=== PATIENT | male | born 1940 | race Caucasian/White ===

== ENCOUNTER 2016-10-20 19:08 | Inpatient (IN) | payer MEDICARE, OTHER ==
--- NOTE | ~2016-10-20 | DS ---
Discharge Summary [facility] [address] [place]. [address] NAME: MANJIT RIVERA : 44 STATUS : DIS IN PAT#: [id number] AGE: 76 ADM/REG DATE : 10/20/16 MR#: [id number] REPORT SERV DATE: 10/30/16 DICTATED BY: KATERIN GRIDER DATE: 10/30/16 REPORT STATUS : Draft TRANSCRIBED BY: MODRajeev DATE: 10/30/16 Data Collection from hospitalization DISCHARGE DIAGNOSIS(ES): 1. End-stage renal disease. 2. Volume overload. 3. Shortness of breath. 4. Benign prostatic hypertrophy. 5. Diabetes mellitus type 2. CONSULTATIONS: None. PROCEDURES PERFORMED: Echocardiogram 10/23/2016. MEDICATIONS: 1. Norvasc 10 mg every morning. 2. Coreg 25 mg twice daily. 3. Lasix 20 mg after supper. 4. Neurontin 100 mg at bedtime. 5. Keppra 500 mg twice daily. 6. Cozaar 100 mg every morning. 7. Dilantin 200 mg twice daily. 8. MiraLAX powder 9 g every morning. 9. Zoloft 100 mg at bedtime. 10.Restoril 15 mg at bedtime. 11.Ventolin two puffs every 4 hours as needed. 12.[place] 5/325 one four times daily as needed. 13.Valisone apply daily as needed. 14.Flonase two sprays each nostril daily as needed. 15.Aleve 440 mg twice daily as needed. 16.Nitrostat 0.4 mg as needed. 17.[id number] antihistamine; Benadryl, Zyrtec, etc., as needed for head congestion. CONDITION AT DISCHARGE: Upon discharge, he did appear to be doing well and had no complaints. DISPOSITION: He had been discharged home to continue a 2 g sodium, 1200 mL per day fluid restriction. Renal diet with activity as tolerated. He was to follow up with dialysis as directed. HOSPITAL COURSE: This 76-year-old male dialyzes chronically at [facility] on Wednesday, Wednesday, and Wednesday by the left upper extremity AV fistula. He was apparently at [facility] for evaluation, and chest x-ray was obtained. He was notified that he needed to go to the emergency room due to bilateral pneumonia. He related that he had been short of breath but also acknowledged lower extremity edema and orthopnea. He had significant cramping on dialysis and indicated that on occasion he had to sign it off due to severe pain. He denied any fever or chills and stated that his sputum production had been clear in color. He was on Zithromax prior to admission. He was admitted for further evaluation and Discharge Summary [address] [address] NAME: MANJIT RIVERA : 44 STATUS : DIS IN PAT#: [id number] AGE: 76 ADM/REG DATE : 10/20/16 MR#: [id number] REPORT SERV DATE: 10/30/16 DICTATED BY: KATERIN GRIDER DATE: 10/30/16 REPORT STATUS : Draft TRANSCRIBED BY: SHABNAM DATE: 10/30/16 treatment. Upon admission to the hospital, he had been placed on vancomycin initiation. He had been placed on vancomycin 1 g IV as directed as well as Levaquin 500 mg IV. He was continued on dialysis during hospitalization. Following the day of admission, he was afebrile and his vital signs were stable. He was continued on his current medications. His shortness breath was noted to have been improved. On 10/22/2016, he did continue to do well and had no new complaints noted. He was continued on supportive care. On 10/23/2016, he did continue to improve and his shortness breath was noted to have been improved. Vancomycin was discontinued. He did undergo the above echocardiogram. He had remained in stable condition and was then discharged on 10/24/2016 with the above instructions. Information collected by: Bobby MgIWiliamT. I submit the above information as my discharge summary. MAGALIE/SHABNAM Katerin Grider M.D. / [id number] CC: Sigrid Bennett M.D.
--- NOTE | ~2016-10-20 | HP ---
History And Physical [place] [id number] [facility] [place]. [address] NAME: MANJIT LESTER : 44 STATUS : ADM IN [facility]#: [id number] AGE: 76 ADM/REG DATE : 10/20/16 MR#: [id number] REPORT SERV DATE: 10/21/16 DICTATED BY: KRISTI HUSSEIN DATE: 10/20/16 REPORT STATUS : Draft TRANSCRIBED BY: MODL DATE: 10/20/16 DATE OF ADMISSION: 10/20/2016 NEPHROLOGY HISTORY AND PHYSICAL INDICATION FOR HOSPITALIZATION: Shortness of breath, cough, possible pneumonia. HISTORY OF PRESENT ILLNESS: Mr. Lester is a 76-year-old male who dialyzes chronically at [facility] on Wednesday, Wednesday, Wednesday by left upper extremity AV fistula. He was apparently at [facility] for evaluation and chest x-ray was obtained. The patient was notified that he needed to go to the emergency room due to bilateral pneumonia. He relates he has been short of breath but also acknowledges lower extremity edema and orthopnea. He has significant cramping on dialysis and indicates that on occasion he has to sign it off due to severe pain. He denied any fever or chills and states that his sputum production has been clear in color. He was on Zithromax prior to admission. PAST MEDICAL HISTORY: End-stage renal disease, dialyzing Wednesday, Wednesday, Wednesday by left AVF; BPH; hypertension; type 2 diabetes mellitus; history of seizure disorder; history of lumbar spine surgery; history of T-spine infection requiring surgery; history of [employer] bleed; diabetic neuropathy; anemia; remote laparoscopic cholecystectomy; coronary artery disease with CABG; and limited mobility since his thoracic spine infection. FAMILY HISTORY: Distant cousin on dialysis, one another cousin on dialysis received transplant, multiple family members with hypertension, denies family members with diabetes. SOCIAL HISTORY: with supportive . He is retired. No use of alcohol, tobacco products, or illicit drugs but quit smoking approximately 40 years ago. REVIEW OF SYSTEMS: HEENT: No change in visual acuity. No epistaxis. No otic infection. No pharyngitis. He does have problems with hearing and feels as fluid behind his eardrums. He has had recent increase in allergies. PULMONARY: Notes cough productive of clear sputum. No hemoptysis. No purulent sputum. No pleuritic chest pain. CARDIAC: Notes exertional dyspnea, orthopnea, lower extremity edema. Denies chest pain. GI: No nausea, vomiting, melena, notes occasional constipation. : No gross hematuria. MUSCULOSKELETAL: Pain in back and lower extremities. INTEGUMENT: No rash, no itching. NEUROLOGIC: No recent seizure activity. He notes limited mobility. The remainder of 12-point review of systems is negative. PHYSICAL EXAMINATION: VITAL SIGNS: Blood pressure 142/80, temp 98.4, and respiratory rate 14. GENERAL: Obese elderly male, chronically ill, somewhat hard of hearing. History And Physical [address] [place]. [address] NAME: MANJIT LESTER : 44 STATUS : ADM IN [facility]#: [id number] AGE: 76 ADM/REG DATE : 10/20/16 MR#: [id number] REPORT SERV DATE: 10/21/16 DICTATED BY: KRISTI HUSSEIN DATE: 10/20/16 REPORT STATUS : Draft TRANSCRIBED BY: SHABNAM DATE: 10/20/16 HEENT: Eyes, no scleral icterus. Pupils equal, reactive to light. Extraocular movement intact. Nares patent with some discharge. THROAT: Mild injection. Mucous membranes moist. NECK: No thyromegaly, masses, or bruits. CHEST/LUNGS: Late crackles at bases. Some expiratory wheezes. No dullness to percussion. CARDIAC: Regular rate and rhythm, 1/6 systolic ejection murmur. No gallop. No rub. ABDOMEN: Obese. Normoactive bowel sounds. No hepatosplenomegaly. No masses. /RECTAL: Not performed. EXTREMITIES: 2 to 3+ lower extremity edema. No calf tenderness. Left upper extremity AV fistula with good bruit and thrill. DERMIS: No rash. No skin lesions. MUSCULOSKELETAL: No deformity. No joint tenderness. NEUROLOGIC: Cranial nerves appear intact. No lateralizing weakness. IMPRESSION: 1. Pneumonia versus congestive heart failure. 2. End-stage renal disease, dialyzing Wednesday, Wednesday, Wednesday by left AV fistula at [facility]. 3. Hypertension. 4. Type 2 diabetes mellitus. 5. Diabetic neuropathy. 6. Anemia. 7. Coronary artery disease, status post CABG. 8. History of T-spine infection requiring surgery. 9. Remote laparoscopic cholecystectomy. PLAN: 1. Cultures and antibiotics. 2. Chest x-ray. 3. Sputum for C and S. 4. Hemodialysis with assessment for more aggressive ultrafiltration as tolerated on 10/21/2016. CG/MODL Kristi Hussein M.D. / [id number] CC: Sigrid Bennett M.D.
[~2016-10-20 19:08] MED LIST: ACIDOPHILU1 PO; ALLEGRA-D12 HOUR PO; ALTACE10 MG PO; ASA5GR PO; ASAB PO; C1 PO; CALTRA600D PO; CALTRAT600 PO; COREG12 PO; COREG25 PO; COREG3 PO; COUMADIN3 MG PO; FISH OIL OTC PO; FISH-EPA1000 MG PO; FLOMAX4 PO; FLONASE NAS; HALF81 PO; IRON PO; L40 PO; LIPITOR40 PO; LORTAB 5 PO; METAMUCIL CAN7 OZ PO; MUCINEX D PO; NITROSTAT0.4 MG SL; NORCO1 TA1 PO; NORV5 PO; OCEAN NAS; OMEGA-3 PO; PERCOCET1 TA4 PO; PHOSLO PO; PRIN20 PO; SENSIPAR30 M1 PO; TUMSROLL PO; VIT B-SIX 50 MG50 MG PO; VITC500 PO; ZEMPLAR1 PO; ZOCOR20 PO; ZOL100 PO; ZOL50 PO; ZOLOFT25 MG PO; ZYRTEC ALLGY10 MG PO; [UNRECOGNIZED DRUG - OTHER] EX
[2016-10-20 20:32] LABS: BASOPHILS 0.4 %; BASOPHILS ABSOLUTE 0.04 10/3/uL (0.0-0.16); EOSINOPHILS 3.6 %; EOSINOPHILS ABSOLUTE 0.37 10/3/uL (0.0-0.53); HEMATOCRIT 29.1 % (40.0-51.0); HEMOGLOBIN 9.9 g/dL (13.6-17.8); IMMATURE GRANULOCYTES 0.6 %; IMMATURE GRANULOCYTES ABSOLUTE 0.06 10/3/uL (0.0-0.11); LYMPHOCYTES 11.6 %; MANUAL DIFF NO %; MEAN CORPUSCULAR HEMOGLOB 32.2 pg (26.0-34.0); MEAN CORPUSCULAR VOLUME 94.8 fL (80-100); MEAN PLATELET VOLUME 9.3 fL (9.2-13.0); MONOCYTES 11.4 %; MONOCYTES ABSOLUTE 1.18 10/3/uL (0.21-1.20); NEUTROPHILS 72.4 %; NEUTROPHILS ABSOLUTE 7.52 10/3/uL (2.02-8.40); PLATELET COUNT 257 10/3/uL (150-400); RBC DISTRIBUTION WIDTH 17.1 % (12.0-16.0); RED CELL COUNT 3.07 10/6/uL (4.7-6.1); WHITE BLOOD CELLS 10.4 10/3/uL (4.5-10.5)
[2016-10-20 20:48] LABS: A/G RATIO 0.6 (0.7-1.9); ALBUMIN 2.4 G/DL (3.5-5.0); ALKALINE PHOSPHATASE 131 U/L (45-117); BUN (BLOOD UREA NITROGEN) 69 MG/DL (6-23); CALCIUM, SERUM 7.8 MG/DL (8.5-10.4); CHLORIDE, SERUM 101 MMOL/L (96-112); CO2 (CARBON DIOXIDE) 23 MMOL/L (24-34); CREATININE 8.65 MG/DL (0.70-1.30); GFR AFRICAN AMERICAN 6 ML/MIN (>=60); GFR NON AFRICAN AMERICAN 5 ML/MIN (>=60); GLOBULIN 4.1 G/DL (2.5-4.1); GLUCOSE, SERUM 113 MG/DL (60-99); PHOSPHORUS, SERUM 7.7 MG/DL (2.5-4.5); POTASSIUM, SERUM 4.2 MMOL/L (3.5-5.3); SGOT(AST) 12 U/L (5-40); SGPT(ALT) 9 U/L (5-65); SODIUM, SERUM 138 MMOL/L (135-148); TOTAL PROTEIN 6.5 G/DL (6.0-8.5)
[2016-10-20] MEDS ORDERED: NEO/POLY/HC OTIC OT (21:40)
[2016-10-20] MEDS ORDERED: VENTOLIN HFA INH (21:40)
[2016-10-20] MEDS ORDERED: Z-PAK PO (21:41)
[2016-10-20] MEDS ORDERED: D100 PO (21:42)
[2016-10-20] MEDS ORDERED: KEPPRA500 PO (21:42)
[2016-10-20] MEDS ORDERED: NORCO1 TA1 PO (21:43)
[2016-10-20] MEDS ORDERED: NEUR100 PO (21:44)
[2016-10-20] MEDS ORDERED: REST15 PO (21:44)
[2016-10-20] MEDS ORDERED: VALISONE OINT 015 GM TOP (21:45)
[2016-10-20] MEDS ORDERED: NORV10 PO (21:45)
[2016-10-20] MEDS ORDERED: COREG25 PO (21:46)
[2016-10-20] MEDS ORDERED: FLONASE NAS (21:47)
[2016-10-20] MEDS ORDERED: L20 PO (21:47)
[2016-10-20] MEDS ORDERED: ZOL100 PO (21:48)
[2016-10-20] MEDS ORDERED: COZAAR100 MG PO (21:48)
[2016-10-20] MEDS ORDERED: ALEVE220 MG PO (21:49)
[2016-10-20] MEDS ORDERED: MIRALAX POWDER1 PKT PO (21:49)
[2016-10-20] MEDS ORDERED: NITROSTAT0.4 MG PO (21:50)
[2016-10-20 23:35] LABS: PROCALCITONIN 2.86 ng/mL (<0.5)
[2016-10-21 11:58] LABS: BASOPHILS 0.5 %; BASOPHILS ABSOLUTE 0.04 10/3/uL (0.0-0.16); EOSINOPHILS 4.8 %; EOSINOPHILS ABSOLUTE 0.42 10/3/uL (0.0-0.53); HEMATOCRIT 29.1 % (40.0-51.0); HEMOGLOBIN 9.9 g/dL (13.6-17.8); IMMATURE GRANULOCYTES 0.6 %; IMMATURE GRANULOCYTES ABSOLUTE 0.05 10/3/uL (0.0-0.11); LYMPHOCYTES 12.8 %; LYMPHOCYTES ABSOLUTE 1.11 10/3/uL (0.67-4.30); MEAN CORPUSCULAR VOLUME 94.2 fL (80-100); MEAN PLATELET VOLUME 8.8 fL (9.2-13.0); MONOCYTES 7.9 %; MONOCYTES ABSOLUTE 0.69 10/3/uL (0.21-1.20); NEUTROPHILS 73.4 %; NEUTROPHILS ABSOLUTE 6.39 10/3/uL (2.02-8.40); PLATELET COUNT 253 10/3/uL (150-400); RED CELL COUNT 3.09 10/6/uL (4.7-6.1); WHITE BLOOD CELLS 8.7 10/3/uL (4.5-10.5)
[2016-10-21 12:03] LABS: MANUAL DIFF NO %
[2016-10-21 12:23] LABS: ALBUMIN 2.4 G/DL (3.5-5.0); CALCIUM, SERUM 8.4 MG/DL (8.5-10.4); CHLORIDE, SERUM 99 MMOL/L (96-112); CO2 (CARBON DIOXIDE) 22 MMOL/L (24-34); GLUCOSE, SERUM 110 MG/DL (60-99); POTASSIUM, SERUM 4.3 MMOL/L (3.5-5.3); SODIUM, SERUM 137 MMOL/L (135-148)
[2016-10-21 12:25] LABS: BUN (BLOOD UREA NITROGEN) 73 MG/DL (6-23); CREATININE 9.81 MG/DL (0.70-1.30); GFR AFRICAN AMERICAN 5 ML/MIN (>=60); GFR NON AFRICAN AMERICAN 5 ML/MIN (>=60); PHOSPHORUS, SERUM 8.9 MG/DL (2.5-4.5)
[2016-10-22 07:10] LABS: BASOPHILS 0.3 %; BASOPHILS ABSOLUTE 0.02 10/3/uL (0.0-0.16); EOSINOPHILS 6.1 %; HEMATOCRIT 30.3 % (40.0-51.0); HEMOGLOBIN 9.9 g/dL (13.6-17.8); IMMATURE GRANULOCYTES 1.5 %; LYMPHOCYTES ABSOLUTE 0.92 10/3/uL (0.67-4.30); MANUAL DIFF NO %; MEAN CORPUS HGB CONC 32.7 g/dL (32.0-36.0); MEAN CORPUSCULAR HEMOGLOB 31.3 pg (26.0-34.0); MEAN CORPUSCULAR VOLUME 95.9 fL (80-100); MEAN PLATELET VOLUME 9.2 fL (9.2-13.0); MONOCYTES 13.7 %; NEUTROPHILS 64.4 %; NEUTROPHILS ABSOLUTE 4.23 10/3/uL (2.02-8.40); PLATELET COUNT 292 10/3/uL (150-400); RBC DISTRIBUTION WIDTH 16.8 % (12.0-16.0); RED CELL COUNT 3.16 10/6/uL (4.7-6.1); WHITE BLOOD CELLS 6.6 10/3/uL (4.5-10.5)
[2016-10-22 07:32] LABS: ALBUMIN 2.4 G/DL (3.5-5.0); CALCIUM, SERUM 8.6 MG/DL (8.5-10.4); CHLORIDE, SERUM 102 MMOL/L (96-112); GLUCOSE, SERUM 98 MG/DL (60-99); POTASSIUM, SERUM 3.9 MMOL/L (3.5-5.3); SODIUM, SERUM 139 MMOL/L (135-148)
[2016-10-22 07:33] LABS: BUN (BLOOD UREA NITROGEN) 46 MG/DL (6-23); CO2 (CARBON DIOXIDE) 28 MMOL/L (24-34); CREATININE 7.35 MG/DL (0.70-1.30); GFR AFRICAN AMERICAN 8 ML/MIN (>=60); GFR NON AFRICAN AMERICAN 7 ML/MIN (>=60); PHOSPHORUS, SERUM 6.2 MG/DL (2.5-4.5)
[2016-10-23 15:54] LABS: BASOPHILS 0.5 %; BASOPHILS ABSOLUTE 0.03 10/3/uL (0.0-0.16); EOSINOPHILS 5.8 %; EOSINOPHILS ABSOLUTE 0.36 10/3/uL (0.0-0.53); HEMATOCRIT 29.3 % (40.0-51.0); HEMOGLOBIN 9.5 g/dL (13.6-17.8); IMMATURE GRANULOCYTES 2.1 %; IMMATURE GRANULOCYTES ABSOLUTE 0.13 10/3/uL (0.0-0.11); LYMPHOCYTES 19.7 %; LYMPHOCYTES ABSOLUTE 1.23 10/3/uL (0.67-4.30); MEAN CORPUS HGB CONC 32.4 g/dL (32.0-36.0); MEAN CORPUSCULAR HEMOGLOB 31.4 pg (26.0-34.0); MEAN CORPUSCULAR VOLUME 96.7 fL (80-100); MONOCYTES 13.3 %; MONOCYTES ABSOLUTE 0.83 10/3/uL (0.21-1.20); NEUTROPHILS 58.6 %; NEUTROPHILS ABSOLUTE 3.66 10/3/uL (2.02-8.40); PLATELET COUNT 272 10/3/uL (150-400); RBC DISTRIBUTION WIDTH 16.5 % (12.0-16.0); RED CELL COUNT 3.03 10/6/uL (4.7-6.1); WHITE BLOOD CELLS 6.2 10/3/uL (4.5-10.5)
[2016-10-23 15:56] LABS: MANUAL DIFF NO %
[2016-10-23 16:01] LABS: ALBUMIN 2.5 G/DL (3.5-5.0); CALCIUM, SERUM 8.2 MG/DL (8.5-10.4); CHLORIDE, SERUM 103 MMOL/L (96-112); CO2 (CARBON DIOXIDE) 28 MMOL/L (24-34); CREATININE 6.97 MG/DL (0.70-1.30); GFR AFRICAN AMERICAN 8 ML/MIN (>=60); GFR NON AFRICAN AMERICAN 7 ML/MIN (>=60); GLUCOSE, SERUM 103 MG/DL (60-99); POTASSIUM, SERUM 4.4 MMOL/L (3.5-5.3); SODIUM, SERUM 137 MMOL/L (135-148)
[2016-10-23 16:02] LABS: BUN (BLOOD UREA NITROGEN) 42 MG/DL (6-23); PHOSPHORUS, SERUM 4.9 MG/DL (2.5-4.5)
[2016-10-24 07:05] LABS: BASOPHILS 0.7 %; BASOPHILS ABSOLUTE 0.04 10/3/uL (0.0-0.16); EOSINOPHILS ABSOLUTE 0.35 10/3/uL (0.0-0.53); HEMOGLOBIN 10.4 g/dL (13.6-17.8); IMMATURE GRANULOCYTES 3.6 %; IMMATURE GRANULOCYTES ABSOLUTE 0.21 10/3/uL (0.0-0.11); LYMPHOCYTES 21.2 %; LYMPHOCYTES ABSOLUTE 1.24 10/3/uL (0.67-4.30); MEAN CORPUS HGB CONC 31.4 g/dL (32.0-36.0); MEAN CORPUSCULAR HEMOGLOB 30.9 pg (26.0-34.0); MEAN CORPUSCULAR VOLUME 98.2 fL (80-100); MEAN PLATELET VOLUME 8.9 fL (9.2-13.0); MONOCYTES 13.7 %; NEUTROPHILS 54.8 %; PLATELET COUNT 287 10/3/uL (150-400); RBC DISTRIBUTION WIDTH 16.6 % (12.0-16.0); RED CELL COUNT 3.37 10/6/uL (4.7-6.1); WHITE BLOOD CELLS 5.8 10/3/uL (4.5-10.5)
[2016-10-24 07:09] LABS: HEMATOCRIT 33.1 % (40.0-51.0)
[2016-10-24 07:10] LABS: MANUAL DIFF NO %
[2016-10-24 07:18] LABS: ALBUMIN 2.7 G/DL (3.5-5.0); CHLORIDE, SERUM 103 MMOL/L (96-112); CO2 (CARBON DIOXIDE) 28 MMOL/L (24-34); GFR AFRICAN AMERICAN 11 ML/MIN (>=60); GFR NON AFRICAN AMERICAN 9 ML/MIN (>=60); GLUCOSE, SERUM 97 MG/DL (60-99); PHOSPHORUS, SERUM 4.5 MG/DL (2.5-4.5); POTASSIUM, SERUM 4.2 MMOL/L (3.5-5.3); SODIUM, SERUM 139 MMOL/L (135-148)
[2016-10-24 07:24] LABS: BUN (BLOOD UREA NITROGEN) 26 MG/DL (6-23); CREATININE 5.52 MG/DL (0.70-1.30)
== END 2016-10-24 16:15 | disposition home or self-care (01) | DRG 291 ==
LOC: 2SO 19:08
PROVIDERS: Internal Medicine Nephrology; Registered Nurse
PROC: 5A1D60Z (ICD-10-PCS; principal; 2016-10-21)
DX: I13.2 Hypertensive heart and chronic kidney disease with heart failure and with stage 5 chronic kidney disease, or end stage renal disease (principal); N18.6 End stage renal disease; E11.22 Type 2 diabetes mellitus with diabetic chronic kidney disease; E11.40 Type 2 diabetes mellitus with diabetic neuropathy, unspecified; G40.909 Epilepsy, unspecified, not intractable, without status epilepticus; D64.9 Anemia, unspecified; I25.10 Atherosclerotic heart disease of native coronary artery without angina pectoris; I50.9 Heart failure, unspecified; N40.0 Benign prostatic hyperplasia without lower urinary tract symptoms; E11.51 Type 2 diabetes mellitus with diabetic peripheral angiopathy without gangrene; Z95.1 Presence of aortocoronary bypass graft; Z99.2 Dependence on renal dialysis; Z87.891 Personal history of nicotine dependence; Z84.1 Family history of disorders of kidney and ureter; Z98.890 Other specified postprocedural states
CPT/HCPCS: 71010; 80053; 80069; 80202; 83735; 83880; 84100; 84145; 85025; 87040; 87070; 87205; A9270-GY; C8929; C9113; G0257; J1956; J2405; J3370; P9047; Q9957